=== PATIENT | female | born 1955 | race Caucasian/White ===

== ENCOUNTER 2021-12-16 07:35 | Outpatient (CLI) | payer BC, SELFPAY ==
--- NOTE | 2021-12-16 07:46 | MM_ITS ---
WS: [id number] SCREENING DIGITAL BREAST TOMOSYNTHESIS MAMMOGRAM WITH CAD HISTORY: SCREENING COMPARISON: None available. Bilateral CC and MLO with tomosynthesis views submitted. Synthetic mammography reviewed. Computer aid ed detection analyzed. Breast composition: There are scattered areas of fibroglandular density. No suspicious masses, microc alcifications or architectural distortion. MM/[place] [id number] IMPRESSION: BI-RADS: 1-Negative FOLLOW UP: 1 Year Follow-up
== END 2021-12-16 07:36 | disposition home or self-care (01) ==
LOC: RAD 07:42
PROVIDERS: PCP Nurse Practitioner Family; Visit Provider Nurse Practitioner Family
DX: Z12.31 Encounter for screening mammogram for malignant neoplasm of breast (principal)
CPT/HCPCS: 77063; 77067

== ENCOUNTER 2022-01-20 05:37 | Day surgery (SDC) | payer BC, SELFPAY ==
[2022-01-15 13:42] VITALS: BMI 42.7
[2022-01-20 06:05] VITALS: BP 176/111; PULSE 77; RESP 18; TEMP 36.3; O2SAT 98
[2022-01-20] MEDS: sodium chloride 0.9% 1,000 ML 30 ML IV (06:16)
--- NOTE | 2022-01-20 06:53 | ANES.PREANE2 ---
Pre-Anesthetic Assessment Height/Weight: Height 1.57 m Weight 106.141 kg Temp Pulse Resp BP Pulse Ox 97.3 F L 77 18 176/111 98 01/20/22 06:05 01/20/22 06:05 01/20/22 06:05 01/20/22 06:05 01/20/22 06:05 Preop Diagnosis: Screening Operation Date: 01/20/22 07:00 Proposed Procedures p Colonoscopy 62470,Z12.11(Not Applicable) - Ethan Busch MD Familial anesthetic complications: none Was Beta Trell taken within 24 hours: N/A Was Clonidine taken within 24 hours: N/A Last intake: Intake Last Liquid Date 01/19/22 Last Liquid Time 20:30 Last Solid Date 01/18/22 Last Solid Time 18:00 Social Alcohol (once a week) and No tobacco Exam alert, oriented x 3, clear to auscultation bilaterally and regular rate & rhythm Airway Submandibular: within normal limits Cervical ROM: within normal limits Mallampati: Class II Dentition: full History/ROS Other Pulmonary Sleep Apnea (cpap at night) CV/HEM None reported None reported Hepatic None reported GI None reported Metabolic Thyroid Disease (hypo) Musc/skel None reported Neuropsych None reported Anesthetic Plan ASA status: 2 Anesthesia: MAC Risk of > 500 ml blood loss (7ml/kg in children): No Medications/Allergies Home Medications Medication Instructions Recorded Confirmed Last Taken Type levothyroxine 100 mcg capsule 100 mcg PO DAILY 10/25/21 01/20/22 01/20/22 02:30 History Allergies Allergy/AdvReac Type Severity Reaction Status Date / Time codeine Allergy Severe Unknown Verified 12/10/21 12:51 Current Medications Generic Name Dose Route Start Last Admin Trade Name Freq PRN Reason Stop Dose Admin Sodium Chloride 1,000 mls @ 30 mls/hr 01/20/22 06:00 01/20/22 06:16 Sodium Chloride 0.9% IV 01/21/22 05:59 30 mls/hr .Q24H EVARISTO Administration PFSH Anesthesia Medical History (Updated 12/10/21 @ 13:28 by Ethan Busch MD) Hypothyroid LALITA (obstructive sleep apnea) Family History (Updated 12/10/21 @ 12:56 by Fabián Galvez) Mother Clotting disorder Stroke Father Lung disease Son Stroke Social History (Updated 12/10/21 @ 12:57 by Fabián Galvez) Smoking and tobacco status: former smoker (In her 20's) Alcohol intake: current Alcohol intake frequency: holidays/special occasions only Other details last alcohol use: Special occasions Data Anesthesia Cardiac Studies: No Data to Display
--- NOTE | 2022-01-20 07:15 | W.PM.OPSFHP ---
Same Day Surgery H&P Indication for Procedure/HPI DATE OF PROCEDURE: January 20, 2022 CHIEF COMPLAINT/INDICATIONFOR SURGICAL PROCEDURE: Screening PREOP DIAGNOSIS: Screening PLANNED PROCEDURE: Operation Date: 01/20/22 07:00 Proposed Procedures p Colonoscopy 65185,Z12.11(Not Applicable) - Ethan Busch MD Medications/Allergies* Home Medications Medication Instructions Recorded Confirmed Type levothyroxine 100 mcg capsule 100 mcg PO DAILY 10/25/21 01/20/22 History Allergies/Adverse Reactions Allergy/AdvReac Type Severity Reaction Status Date / Time codeine Allergy Severe Unknown Verified 12/10/21 12:51 Current Medications: Generic Name Dose Route Start Last Admin Trade Name Freq PRN Reason Stop Dose Admin Sodium Chloride 1,000 mls @ 30 mls/hr 01/20/22 06:00 01/20/22 06:16 Sodium Chloride 0.9% IV 01/21/22 05:59 30 mls/hr .Q24H EVARISTO Administration Pertinent History/Comorbid Conditions* Medical History (Updated 12/10/21 @ 13:28 by Ethan Busch MD) Hypothyroid LALITA (obstructive sleep apnea) Family History (Updated 12/10/21 @ 12:56 by Fabián Galvez) Clotting disorder Mother Lung disease Father Stroke Mother Son Social History Smoking and tobacco status: former smoker (In her 20's) Alcohol intake: current Alcohol intake frequency: holidays/special occasions only Other details last alcohol use: Special occasions Pertinent Exam Findings alert, oriented x 3, clear to auscultation bilaterally, regular rate & rhythm, operative site marked and procedure specific exam findings Recommendations Surgery/Procedure today Coding Level of Care Code Acute Director Inpatient Headache Program for Vladislav Loera
[2022-01-20 07:35] VITALS: BP 158/91; PULSE 78; RESP 18; TEMP 36.2; O2SAT 93
[2022-01-20 07:40] VITALS: BP 124/99; PULSE 78; RESP 18; O2SAT 96
--- NOTE | 2022-01-20 07:40 | ANE.PACU2 ---
Inpatient post-anesthesia follow up: Airway intact: Yes Vital signs: Temperature 97.2 F Pulse Rate 78 Respiratory Rate 18 Blood Pressure 158/91 Pulse Oximetry 93 Oxygen Delivery Me thod Room Air Oxygen Flow Rate Fraction of Inspir ed Oxygen Hydration adequate: Yes Nausea and vomiting: No Pain level: 1 Mental status: Baseline
[2022-01-20 07:50] VITALS: BP 154/91; PULSE 69; RESP 18; O2SAT 95
== END 2022-01-20 08:05 | disposition home or self-care (01) ==
PROVIDERS: PCP Nurse Practitioner Family; Visit Provider Internal Medicine
PROC: 0DJD8ZZ Inspection of Lower Intestinal Tract, Via Natural or Artificial Opening Endoscopic (ICD-10-PCS; CPT 45378; principal; 2022-01-20 07:00)
DX: Z12.11 Encounter for screening for malignant neoplasm of colon (principal); D12.3 Benign neoplasm of transverse colon; E03.9 Hypothyroidism, unspecified; G47.33 Obstructive sleep apnea (adult) (pediatric); Z87.891 Personal history of nicotine dependence
CPT/HCPCS: 45385; 88305; J2704; J7030

== ENCOUNTER 2023-07-06 08:56 | Outpatient (CLI) | payer BC, SELFPAY ==
--- NOTE | 2023-07-06 09:00 | XR_ITS ---
WS: [id number] Exam: XR lumbar spine f/e only [id number] Date/Time of Exam: 07/06/2023 9:05 AM Reason For Exam: LUMBAR BACK PAIN No acute fracture or dislocation. Mild spondylosis. Mild degenerative disc narrowing at L1-2, L4-5 an d L5-S1. No significant flexion or extension instability noted. Posterior elements are intact. Mild f acet DJD at L4-5 and L5-S1. IMPRESSION: 1. Mild degenerative changes, no flexion or extension instability.
--- NOTE | 2023-07-06 09:01 | XR_ITS ---
WS: [id number] Exam: XR hip LT 2-3V wo/w pel* [id number] Date/Time of Exam: 07/06/2023 9:05 AM Reason For Exam: LEFT HIP PAIN No acute fracture or dislocation. The joint compartment is well-maintained. Normal soft tissues. IMPRESSION: 1. Negative LEFT hip.
== END 2023-07-06 08:57 | disposition home or self-care (01) ==
LOC: RAD 08:57
PROVIDERS: PCP Nurse Practitioner Family; Visit Provider Nurse Practitioner Family
DX: M51.37 Other intervertebral disc degeneration, lumbosacral region (principal); M25.552 Pain in left hip; M47.817 Spondylosis without myelopathy or radiculopathy, lumbosacral region
CPT/HCPCS: 72120; 73502

== ENCOUNTER 2024-10-25 09:58 | Outpatient (CLI) | payer MEDICARE, SELFPAY ==
--- NOTE | 2024-10-25 10:10 | XR_ITS ---
WS: [id number] XR ankle RT min 3V* [id number] REASON FOR EXAM: R ANKLE PAIN FINDINGS: No acute fracture or focal bone lesion. Joint spaces of the ankle are intact and well preserved. Possible mild soft tissue swelling over the medial malleolus. XR/XR ankle RT min 3V* [id number] IMPRESSION: No acute bone or joint abnormality identified.
== END 2024-10-25 09:59 | disposition home or self-care (01) ==
PROVIDERS: PCP Nurse Practitioner Family; Visit Provider Nurse Practitioner Family
DX: M25.571 Pain in right ankle and joints of right foot (principal)
CPT/HCPCS: 73610

== ENCOUNTER → 2024-11-01 07:52 | Outpatient (BNVA) | payer MEDICARE, SELFPAY | PROVIDERS: PCP Nurse Practitioner Family; Visit Provider Podiatrist Foot & Ankle Surgery | DX: M25.571 Pain in right ankle and joints of right foot (principal); M76.821 Posterior tibial tendinitis, right leg; M72.2 Plantar fascial fibromatosis; M21.41 Flat foot [pes planus] (acquired), right foot | CPT/HCPCS: 99204 ==

== ENCOUNTER → 2024-11-08 12:47 | Outpatient (BNVA) | payer MEDICARE, SELFPAY | PROVIDERS: PCP Nurse Practitioner Family; Visit Provider Internal Medicine Cardiovascular Disease | DX: R00.2 Palpitations (principal) ==

== ENCOUNTER → 2024-11-30 08:41 | Outpatient (BNVA) | payer MEDICARE, SELFPAY | PROVIDERS: PCP Nurse Practitioner Family; Visit Provider Podiatrist Foot & Ankle Surgery | DX: M76.821 Posterior tibial tendinitis, right leg (principal); M72.2 Plantar fascial fibromatosis; M21.41 Flat foot [pes planus] (acquired), right foot | CPT/HCPCS: 99213 ==

== ENCOUNTER → 2024-12-05 07:49 | Outpatient (BNVA) | payer MEDICARE, SELFPAY | PROVIDERS: PCP Nurse Practitioner Family; Visit Provider Nurse Practitioner Family | DX: L81.4 Other melanin hyperpigmentation (principal); L57.8 Other skin changes due to chronic exposure to nonionizing radiation; D22.5 Melanocytic nevi of trunk; Z12.83 Encounter for screening for malignant neoplasm of skin; L82.0 Inflamed seborrheic keratosis; Z78.9 Other specified health status; R20.8 Other disturbances of skin sensation; L53.8 Other specified erythematous conditions; L57.0 Actinic keratosis | CPT/HCPCS: 17000; 17110; 99203 ==

== ENCOUNTER 2025-06-16 08:27 | Outpatient (CLI) | payer MEDICARE, SELFPAY ==
--- NOTE | 2025-06-16 08:33 | MM_ITS ---
WS: [id number] BILATERAL SCREENING DIGITAL TOMOSYNTHESIS MAMMOGRAM WITH CAD HISTORY: SCREENING COMPARISON: 12/16/2021 Bilateral CC and MLO views with tomosynthesis and synthetic mammography submitted. Computer aided detection analyzed. Breast composition: There are scattered areas of fibroglandular density. No suspicious masses, microcalcifications or architectural distortion. Stable asymmetry upper outer quadrant LEFT breast. Benign arterial calcifications in each breast. MM/MM scr BI tomosynthesis [id number] IMPRESSION: BI-RADS: 2 - Benign. FOLLOW UP: 1 Year Follow-up
== END 2025-06-16 08:28 | disposition home or self-care (01) ==
LOC: RAD 08:28
PROVIDERS: PCP Nurse Practitioner Family; Visit Provider Nurse Practitioner Family
DX: Z12.31 Encounter for screening mammogram for malignant neoplasm of breast (principal); R92.323 Mammographic fibroglandular density, bilateral breasts; R92.1 Mammographic calcification found on diagnostic imaging of breast
CPT/HCPCS: 77063; 77067